=== PATIENT | male | born 1945 | race Caucasian/White ===

== ENCOUNTER 2021-10-03 13:17 | Emergency (ER) | payer MEDICARE ==
[2021-10-03 14:58] LABS: BASOPHIL 0.3 % (0-2); EOSINOPHIL 3.9 % (0-7); HGB 12.6 g/dl (13.2-18.0); LYMPHOCYTE 32.6 % (15-48); MCH 31.2 pg (25.0-31.0); MCHC 32.3 g/dL (32.0-36.0); MCV 96.5 fL (78.0-100.0); MONOCYTE 7.8 % (0-12); MPV 10.4 fL (6.0-9.5); NEUTROPHIL 55.2 % (41-80); NRBC 0; PLT 183 K/uL (150-400); RBC 4.04 M/uL (4.70-6.00); RDW 14.6 % (11.5-14.0); WBC 6.4 K/uL (4.0-10.5)
[2021-10-03 15:07] LABS: ALBUMIN 3.2 g/dL (3.4-5.0); BILIRUBIN - TOTAL 0.7 mg/dL (0.2-1.0); BUN/CREAT RATIO (CALC) 23.5 RATIO; CREATININE 0.85 mg/dL (0.67-1.17); GLOBULIN (CALCULATION) 4.2 g/dL; POTASSIUM 4.3 mmol/L (3.5-5.1); TOTAL PROTEIN 7.4 g/dL (6.4-8.2)
== END 2021-10-03 16:10 | disposition home or self-care (01) ==
LOC: FER 13:17
PROVIDERS: Emergency Medicine
DX: E11.649 Type 2 diabetes mellitus with hypoglycemia without coma (principal); I10 Essential (primary) hypertension; Z88.0 Allergy status to penicillin; Z88.8 Allergy status to other drugs, medicaments and biological substances; Z91.030 Bee allergy status
CPT/HCPCS: 36415; 80053; 85025; 99285